=== PATIENT | female | born 1945 | race Caucasian/White ===

== ENCOUNTER 2020-12-09 10:27 | Emergency (ER) | payer MEDICARE, MEDICAID ==
[~2020-12-09] VITALS: Ht 170.2 cm; Wt 88.4 kg
[2020-12-09 10:57] VITALS: BP 132/72
[2020-12-09] MEDS ORDERED: CEFDINIR 300 MG CAPSULE PO ONE (11:00)
--- NOTE | 2020-12-09 11:06 | NUR ---
PT PRESENTS TO ED WITH C/O VAGINAL BURNING AND "CRUST" ON LABIA. PT STATES THEY WERE PUT ON ABX BY PCP BUT NO IMPROVEMENT. PT STATES THEY CLEANSE 2X DAY AND APPLY TOPICAL STEROID OINTMENT. PT A&O, RESPS EVEN AND UNLABORED, KAUSHIK BERNAL. JI HAMILTON AT BEDSIDE FOR EVAL.
[2020-12-09] MEDS ORDERED: CEFDINIR 300 MG CAPSULE ONE ×2 (11:16→11:23)
== END 2020-12-09 11:27 | disposition home or self-care (01) ==
LOC: ED 11:05
DX: N76.0 Acute vaginitis (principal); F17.200 Nicotine dependence, unspecified, uncomplicated
CPT/HCPCS: 99283